=== PATIENT | male | born 1980 | race African-American/Black ===

== ENCOUNTER 2024-05-21 20:08 | Inpatient (IN) | payer OTHER ==
[2024-05-21 20:58] VITALS: BMI 22.8
[2024-05-21] MEDS ORDERED: BENZONATATE 200 MG CAPSULE PO PRN (21:12)
[2024-05-21] MEDS ORDERED: BENZOCAINE/MENTHOL (CHLORASEPTIC ) LOZENGE MM PRN (21:12)
[2024-05-21] MEDS ORDERED: NICOTINE POLACRILEX 2 MG GUM BUC PRN (21:12)
[2024-05-21] MEDS ORDERED: NALOXONE (NARCAN) HCL 4 MG/0.1 ML SPRAY NS PRN (21:12)
[2024-05-21] MEDS ORDERED: MAGNESIUM HYDROX 2400MG/30ML ORAL SUSPENSION 30 ML CUP PO PRN (21:12)
[2024-05-21] MEDS ORDERED: ACETAMINOPHEN 325 MG TABLET (FP) PO PRN (21:12)
[2024-05-21] MEDS ORDERED: NICOTINE POLACRILEX 2 MG LOZENGE BC PRN (21:12)
[2024-05-21] MEDS ORDERED: DICYCLOMINE HCL 10 MG CAPSULE PO PRN (21:12)
[2024-05-21] MEDS ORDERED: MAG HYDROX/AL HYDROX/SIMETH 30 ML UNIT-DOSE CUP PO PRN (21:12)
[2024-05-21] MEDS ORDERED: IBUPROFEN 400 MG TABLET (FP) PO PRN (21:12)
[2024-05-21] MEDS ORDERED: POLYETHYLENE GLYCOL (HEALTHYLAX) 3350 17 GM PACKET PO PRN (21:12)
[2024-05-21] MEDS ORDERED: ONDANSETRON *ODT* 4 MG TABLET SL PRN (21:12)
[2024-05-21] MEDS ORDERED: LOPERAMIDE HCL 2 MG CAPSULE PO PRN (21:12)
[2024-05-21] MEDS ORDERED: IBUPROFEN 600 MG TABLET (FP) PO PRN (21:12)
[2024-05-21] MEDS ORDERED: BISMUTH SUBSALICYLATE 524 MG/30 ML PO PRN (21:12)
[2024-05-21] MEDS ORDERED: guaiFENesin 600 MG TABLET.ER (FP) PO PRN (21:12)
[2024-05-22] MEDS ORDERED: ALBUTEROL SO4 HFA INHALER IH PRN (02:59)
[2024-05-22] MEDS: amLODIPine BESYLATE 5 MG TABLET (FP) PO ONE (03:50)
[2024-05-22] MEDS: LIDOCAINE PATCH REMOVAL MC SCH (03:50)
[2024-05-22] MEDS: MELATONIN 5 MG TABLETS PO SCH (03:50)
[2024-05-22] MEDS: THIAMINE 100 MG TABLET PO SCH (03:51)
[2024-05-22] MEDS: hydrOXYzine PAMOATE 25 MG CAPSULE (FP) PO PRN (06:47)
[2024-05-22] MEDS: METHOCARBAMOL 500 MG TABLET PO PRN (06:47)
[2024-05-22 10:06] LABS: POTASSIUM 3.3 mmol/L (3.5-5.1)
[2024-05-22 10:10] LABS: ALBUMIN 4.2 g/dl (3.4-5.0); BLOOD UREA NITROGEN 12.5 mg/dL (7-18)
[2024-05-22 10:11] LABS: HEMATOCRIT 39.2 % (35.4-49); HEMOGLOBIN 13.5 GM/dL (11.7-16.9); MCHC 34.5 g/dl (32.0-35.9); MEAN CELL VOLUME 95.6 fl (80-96); MEAN PLT VOLUME 10.7 fl (7.5-11.1); PLATELET COUNT 155 10^3/uL (134-434); RDW 14.5 % (11.9-15.9); WHITE BLOOD COUNT 4.5 K/mm3 (4.0-10.0)
[2024-05-22 10:14] LABS: CREATININE 0.9 mg/dL (0.55-1.3)
[2024-05-22 10:15] LABS: BILIRUBIN,TOTAL 0.9 mg/dL (0.2-1); TOT PROT 7.7 g/dl (6.4-8.2)
[2024-05-22] MEDS: LIDOCAINE 5% TOPICAL PATCH TP SCH (10:19)
[2024-05-22] MEDS: PRENATAL VITAMINS W/ FOLIC ACID TABLET (FP) PO SCH (10:19)
[2024-05-22] MEDS: POTASSIUM CHLORIDE ORAL LIQUID 20 MEQ/15 ML PO ONE (10:46)
[2024-05-22] MEDS: chlordiazePOXIDE HCL 25 MG CAPSULE PO SCH (10:46)
[2024-05-22] MEDS: chlordiazePOXIDE HCL 25 MG CAPSULE PO PRN (13:02)
[2024-05-22] MEDS: cloNIDine HCL 0.1 MG TABLET PO PRN (13:02)
[2024-05-22] MEDS: NICOTINE 14 MG/24 HOURS TOPICAL PATCH TD SCH (13:59)
[2024-05-22] MEDS: traZODone HCL 50 MG TABLET (FP) PO SCH (22:22)
[2024-05-23 10:23] LABS: BLOOD UREA NITROGEN 10.3 mg/dL (7-18); CALCIUM 9.2 mg/dL (8.5-10.1); POTASSIUM 3.2 mmol/L (3.5-5.1)
[2024-05-23 10:26] LABS: CREATININE 0.8 mg/dL (0.55-1.3)
[2024-05-23] MEDS: POTASSIUM CHLORIDE ORAL LIQUID 20 MEQ/15 ML PO ONE ×2 (18:23→22:20)
[2024-05-24] MEDS: chlordiazePOXIDE HCL 25 MG CAPSULE PO SCH (06:10)
[2024-05-24 08:52] VITALS: BP 135/86; PULSE 74; RESP 18; TEMP 97.8
[2024-05-25] MEDS ORDERED: chlordiazePOXIDE HCL 10 MG CAPSULE PO PRN
[2024-05-25] MEDS ORDERED: chlordiazePOXIDE HCL 10 MG CAPSULE PO SCH (05:00)
[2024-05-26] MEDS ORDERED: chlordiazePOXIDE HCL 10 MG CAPSULE PO SCH (05:00)
[2024-05-27] MEDS ORDERED: chlordiazePOXIDE HCL 10 MG CAPSULE PO ONE (05:00)
== END 2024-05-24 09:55 | disposition left against medical advice (07) | DRG 770 ==
LOC: YASAS 20:08 → Y3N 05-22 01:56
PROVIDERS: ADMIT Allergy & Immunology; ATTEND Allergy & Immunology
PROC: HZ2ZZZZ Detoxification Services for Substance Abuse Treatment (ICD-10-PCS; principal; 2024-05-22)
DX: F10.230 Alcohol dependence with withdrawal, uncomplicated (principal); F17.210 Nicotine dependence, cigarettes, uncomplicated; F19.282 Other psychoactive substance dependence with psychoactive substance-induced sleep disorder; E87.6 Hypokalemia; I10 Essential (primary) hypertension; J45.909 Unspecified asthma, uncomplicated
CPT/HCPCS: 36415; 80048; 80053; 80305; 80307; 85027; 86780; 93005; 93010